=== PATIENT | female | born 1970 | race American Indian/Alaskan Native ===

== ENCOUNTER 2016-10-13 13:57 | Outpatient (CLI) | payer OTHER ==
--- NOTE | 2016-10-16 08:15 | Magnetic Resonance Report ---
MRI RIGHT KNEE WITHOUT CONTRAST: 10/13/16 CLINICAL: Right knee pain. Possible meniscal tear. TECHNIQUE: Sagittal proton density fat sat and T2, coronal T2 fat sat and proton density and axial gradient T2*sequences on a 1.5 Julissa magnet. FINDINGS: Oblique tear of the anterior horn of the lateral meniscus. Oblique hyperintense signal extends to the anterior articular surface. There is narrowing of the lateral joint space with a moderate size osteophyte. The body of the lateral meniscus partially extruded from the joint space. The medial meniscus is intact. Intact anterior and posterior cruciate ligaments. The collateral ligaments are intact. Normal marrow signal with no bone contusion or fracture. The femoral cartilage is intact. There is a small knee joint effusion. A multiloculated popliteal cyst measures 2.5 x 1.0 x 0.7 cm. Intact patella with normal cartilage, tendon and retinaculum. IMPRESSION: 1. Chronic tear of the anterior horn lateral meniscus. 2. Moderate osteoarthritis of the lateral joint space. 3. No ligamentous injury. 4. Small knee joint effusion and small popliteal cyst.
== END 2016-10-13 13:58 | disposition home or self-care (01) ==
LOC: MRI 13:57
PROVIDERS: ATTEND Internal Medicine
DX: M23.203 Derangement of unspecified medial meniscus due to old tear or injury, right knee (principal)
CPT/HCPCS: 73721

== ENCOUNTER 2017-07-09 10:58 | Outpatient (CLI) | payer OTHER ==
--- NOTE | 2017-07-09 15:53 | Mammography Report ---
BILATERAL DIGITAL SCREENING MAMMOGRAM with CAD: 07/09/17 10:58:00 CLINICAL: Routine screening.Previously confirmed bilateral cysts. COMPARISON:07/03/16 and 04/27/15 FINDINGS: The breasts are heterogeneously dense, which may obscure small masses. New bilateral circumscribed densities require additional evaluation.No architectural distortion or suspicious calcifications. IMPRESSION: Bilateral asymmetries requiring further workup. BI-RADS CATEGORY: 0 -- Additional Imaging Evaluation Required RECOMMENDATION: Recall for a right outer breast ultrasound and a left outer breast ultrasound to confirm bilateral benign cysts. ACR BI-RADS MAMMOGRAPHIC CODES: 0 = Needs additional imaging evaluation; 1 = Negative; 2 = Benign; 3 = Probably benign; 4 = Suspicious; 5 = Malignant; 6 = Known biopsy-proven malignancy COMMENT: 1. Dense breast tissue, i.e., adenosis, fibrocystic changes, etc., may obscure an underlying neoplasm. 2. Approximately 10% of cancers are not detected with mammography. 3. A negative mammography report should not delay biopsy if a clinically suspicious mass is present. COMMENT: Patient follow-up letters are generated via our [employer] application.
== END 2017-07-09 10:59 | disposition home or self-care (01) ==
LOC: SPVWC 10:58
PROVIDERS: ATTEND Obstetrics & Gynecology
DX: Z12.31 Encounter for screening mammogram for malignant neoplasm of breast (principal)
CPT/HCPCS: 77067; G0202